=== PATIENT | female | born 1970 ===

== ENCOUNTER 2025-05-27 06:20 | Day surgery (SDC) | payer BC, SELFPAY | END 2025-05-27 10:14 | disposition home or self-care (01) | LOC: GI 06:20 | PROVIDERS: ATTENDING PHYSICIAN Surgery | DX: Z12.11 Encounter for screening for malignant neoplasm of colon (principal); K63.89 Other specified diseases of intestine; K64.9 Unspecified hemorrhoids; Z86.0100 Personal history of colon polyps, unspecified | CPT/HCPCS: 45380; 88305 ==